=== PATIENT | male | born 1950 | race Caucasian/White ===

== ENCOUNTER → 2023-04-02 | Outpatient (CLI) | payer MEDICARE | END | disposition home or self-care (01) | LOC: CT 12:41 | PROVIDERS: ATTEND Internal Medicine Critical Care Medicine | DX: R55 Syncope and collapse (principal); F32.A Depression, unspecified ==

== ENCOUNTER → 2023-04-11 | Outpatient (CLI) | payer MEDICARE | END | disposition home or self-care (01) | LOC: CT 09:35 | PROVIDERS: ATTEND Internal Medicine Critical Care Medicine | DX: R55 Syncope and collapse (principal) ==